=== PATIENT | female | born 1980 | race Caucasian/White ===

== ENCOUNTER → 2021-08-18 00:05 | Outpatient (CLI) | payer MEDICARE, MEDICAID, SELFPAY ==
[2021-08-18 18:04] LABS: SARS-CoV-2 RNA PCR Negative
== END ==
PROVIDERS: PCP Student in an Organized Health Care Education/Training Program; Visit Provider Student in an Organized Health Care Education/Training Program
DX: R68.89 Other general symptoms and signs (principal); Z20.822 Contact with and (suspected) exposure to COVID-19
CPT/HCPCS: C9803; U0003; U0005

== ENCOUNTER 2022-05-02 12:18 | Outpatient (CLI) | payer MEDICARE, MEDICAID, SELFPAY ==
--- NOTE | ~2022-05-02 | CT_ITS ---
EXAMINATION: CT abdomen pelvis wo con DATE: 05/02/2022 12:39 INDICATION: Right abdominal pain. TECHNIQUE: Computed tomography (CT) of the abdomen and pelvis was performed without intravenous contr ast. Automated exposure control and iterative reconstruction technique were employed. The dose-length product was 306.07 mGy-cm. COMPARISON: CT abdomen and pelvis 05/28/2012 FINDINGS: The visualized portions of the lung bases demonstrate mild atelectasis. A calcified right l ismael nodule is consistent with old granulomatous disease. No pleural effusion. The heart size is cheryl l. No pericardial effusion. The liver and spleen are normal. There are changes of cholecystectomy. Th e pancreas and adrenal glands are normal. There is a 7 mm stone in right kidney. There is a 19 mm sto ne in right renal pelvis. There is moderate bilateral hydronephrosis. There is left-sided hydroureter . There is a 4 mm stone at left ureterovesicular junction. 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 There is a left-sided end colostomy. There are no pathologically enlarged l ymph nodes. There is no free intraperitoneal fluid. There are changes of posterior fusion procedure o f thoracolumbar spine and the sacrum and iliac bones with pedicle screws and rods. Extensive metal ar tifact obscures the ureters and retroperitoneum. There is a subcutaneous pump in right abdomen with i ntrathecal catheter. IMPRESSION: 1. 4 mm stone at left ureterovesicular junction with moderate left hydronephrosis and hydroureter. Po rtions of left ureter are obscured by artifact from the spinal instrumentation. 2. Nonobstructing stones in right kidney and right renal pelvis. Moderate right hydronephrosis. The r ight ureter is obscured by artifact from the spine instrumentation. Reviewed, dictated and finalized at location A. IMPRESSION: 1. 4 mm stone at left ureterovesicular junction with moderate left hydronephros is and hydroureter. Portions of left ureter are obscured by artifact from the s vale instrumentation. 2. Nonobstructing stones in right kidney and right renal pelvis. Moderate right hydronephrosis. The right ureter is obscured by artifact from the spine instru mentation.
== END 2022-05-02 12:19 | disposition home or self-care (01) ==
PROVIDERS: PCP Student in an Organized Health Care Education/Training Program; Visit Provider Student in an Organized Health Care Education/Training Program
DX: N20.0 Calculus of kidney (principal); N13.30 Unspecified hydronephrosis; N13.4 Hydroureter; Z98.1 Arthrodesis status
CPT/HCPCS: 74176

== ENCOUNTER 2022-12-08 18:34 | Emergency (ER) | payer MEDICARE, MEDICAID, SELFPAY ==
[2022-12-08 18:44] VITALS: BP 129/76; PULSE 92; RESP 16; TEMP 36.7; O2SAT 99
--- NOTE | 2022-12-08 19:16 | ED.SKABFB ---
HPI - Skin/Abscess/Foreign Bdy General Chief complaint: Upper Respiratory Infection Stated complaint: facial swelling Time Seen by Provider: 12/08/22 18:37 Source: patient Mode of arrival: wheelchair Limitations: no limitations History of Present Illness HPI narrative: 42-year-old female presents to [facility] complaints of right facial cheek swelling and burning to her right sinuses since yesterday. Patient denies dental pain, fever, body aches, chills, nausea vomiting or diarrhea. Patient reports that she does take Zyrtec and Flonase daily. Onset (ago): day(s) (1) Associated symptoms: denies other symptoms Related Data Home Medications Medication Instructions Recorded Confirmed fluticasone propionate 50 2 spray intranasal DAILY 12/08/22 12/08/22 mcg/actuation nasal spray,suspension furosemide 20 mg tablet 20 mg PO DAILY 12/08/22 12/08/22 hydrocodone 5 mg-acetaminophen 325 1 tablet PO Q6-8H PRN Pain 12/08/22 12/08/22 mg tablet naproxen 500 mg tablet 500 mg PO DAILY 12/08/22 12/08/22 oxybutynin chloride 15 mg 15 mg PO DAILY 12/08/22 12/08/22 tablet,extended release 24 hr potassium chloride 10 mEq 10 meq PO DAILY 12/08/22 12/08/22 tablet,extended release Allergies Allergy/AdvReac Type Severity Reaction Status Date / Time adhesive Allergy Intermediate Rash Verified 12/08/22 18:57 latex Allergy Intermediate Rash Verified 12/08/22 18:57 acetaminophen AdvReac Intermediate RESTLESS Verified 12/08/22 18:57 codeine AdvReac Intermediate Other Verified 12/08/22 18:57 oxycodone AdvReac Intermediate Other Verified 12/08/22 18:57 SSRI AdvReac Intermediate Other Uncoded 12/08/22 18:57 Review of Systems Constitutional: Constitutional: Denies chills, Denies fatigue, Denies fever(s) and Denies weakness ENT: Denies vertigo and Denies dizziness Comments: right facial cheek swelling; right sinus burning Cardiovascular: Cardiovascular: Denies chest pain Respiratory: Respiratory: Denies cough, Denies dyspnea and Denies wheezing Gastrointestinal: Gastrointestinal: Denies diarrhea, Denies nausea and Denies vomiting Integumentary/Breasts: Skin/Breast: Denies rash PMFSH Social History Social History Smoking status: Former smoker Alcohol intake: never Comments At time of signature, I agree with nursing past medical, surgical, social and family history. There is no relevant family history pertinent to the presenting complaint. Exam Const: General: healthy appearing Nutritional Appearance: well nourished Orientation/consciousness: patient oriented x3 Limitations: physical limitations Other: Patient is in wheelchair for evaluation HENMT: Head: normal to inspection Ears: external ears normal and TM's normal bilaterally Face/Nose/Sinus: Normal external nose present and Normal nares present Face and sinus: normal facial exam Mouth: Yes lip normal and Yes moist mucous membranes Teeth and gingiva: dentition normal Throat: uvula midline Other: Mild swelling noted to right lower facial cheek. No obvious abscess or abnormality noted to teeth. no nasal congestion noted upon palpation. Eyes: Conjunctivae: conjunctivae normal Cardio: Rate: regular rate Rhythm: regular rhythm Heart sounds: no murmurs Skin: General skin exam: normal color Rashes: no rashes Wounds: no wounds Neuro: General: patient oriented x3 Speech: normal speech Psych: Affect: normal affect Attitude: cooperative Course Course Level of Care: Express Care Visit Vital Signs Vital signs: Vital Signs Temperature 36.7 C 12/08/22 18:44 Pulse Rate 92 12/08/22 18:44 Respiratory Rate 16 12/08/22 18:44 Blood Pressure 129/76 12/08/22 18:44 Pulse Oximetry 99 12/08/22 18:44 Oxygen Delivery Room Air 12/08/22 18:44 Temperature 36.7 C 12/08/22 18:44 Pulse Rate 92 12/08/22 18:44 Respiratory Rate 16 12/08/22 18:44 Blood Pressure 129/76 12/08
== END 2022-12-08 19:31 | disposition home or self-care (01) ==
PROVIDERS: Emergency Provider Nurse Practitioner Family
DX: R22.0 Localized swelling, mass and lump, head (principal); Z87.891 Personal history of nicotine dependence
CPT/HCPCS: 99213; G0463

== ENCOUNTER 2023-02-02 13:47 | Emergency (ER) | payer MEDICARE, MEDICAID, SELFPAY ==
--- NOTE | 2023-02-02 14:04 | ED.URI ---
HPI - URI/Sore Throat General Chief Complaint: Upper Respiratory Infection Stated Complaint: sore throat Time Seen by Provider: 02/02/23 14:05 Source: patient Mode of arrival: ambulatory Limitations: no limitations History of Present Illness HPI Narrative: Liz is a 42-year-old female patient presenting to the clinic today with complaints of a sore throat. She reports she has had sore throat for 1-2 days. Her daughter just tested positive for strep in the clinic today. She would like to be tested for strep as well. She denies any fever or chills MD elicited complaint: sore throat and nasal congestion Related Data Home Medications Medication Instructions Recorded Confirmed fluticasone propionate 50 2 spray intranasal DAILY 12/08/22 12/08/22 mcg/actuation nasal spray,suspension furosemide 20 mg tablet 20 mg PO DAILY 12/08/22 12/08/22 naproxen 500 mg tablet 500 mg PO DAILY 12/08/22 12/08/22 oxybutynin chloride 15 mg 15 mg PO DAILY 12/08/22 12/08/22 tablet,extended release 24 hr potassium chloride 10 mEq 10 meq PO DAILY 12/08/22 12/08/22 tablet,extended release nitrofurantoin 02/02/23 monohydrate/macrocrystals 100 mg capsule Allergies Allergy/AdvReac Type Severity Reaction Status Date / Time adhesive Allergy Intermediate Rash Verified 02/02/23 14:06 latex Allergy Intermediate Rash Verified 02/02/23 14:06 acetaminophen AdvReac Intermediate RESTLESS Verified 02/02/23 14:06 codeine AdvReac Intermediate Other Verified 02/02/23 14:06 oxycodone AdvReac Intermediate Other Verified 02/02/23 14:06 SSRI AdvReac Intermediate Other Uncoded 02/02/23 14:06 Review of Systems Review of Systems: Pertinent positives per HPI. Patient denies any fever, chills, rash, headache, visual changes, dizziness, cough, shortness of breath, chest pain, palpitations, nausea, vomiting, diarrhea, constipation, abdominal pain, or any urinary issues. [facility] Social History Social History Smoking status: Former smoker Alcohol intake: never Comments At the time of my signature, I reviewed and agree with the nursing past medical, surgical, social, and family history. There is no relevant family history pertinent to the patient complaint. Exam Narrative: General: Well-developed, well nourished, in no apparent distress Head: Normocephalic, atraumatic Eyes: Pupils equally round and reactive to light bilaterally, EOM intact, sclera and conjunctive clear, no discharge, lids normal Ears: TMs intact and clear, ear canals clear, no drainage, grossly hearing normal. Nose: Nares patent, clear nasal discharge, no inflammation, no sinus tenderness. Mouth: Oral pharynx without lesions or masses, good dentition, MMM. Oropharynx mildly red Neck: Supple, trachea midline, no enlargement of anterior or posterior cervical nodes, no thyroid masses or goiter palpable. Cardio: Regular rate and rhythm, s1 and s2 normal, no murmur appreciated. Resp: Clear to auscultation bilaterally, no rhonchi, rales, wheezing or rubs Course Course Emergency Course: Portions of this record may have been created with voice recognition software. Level of Care: Express Care Visit Vital Signs Vital signs: Vital signs reviewed MDM - URI/Sore Throat MDM Narrative Medical decision making narrative: At the time of visit patient is resting comfortably on the exam table. Strep screen was obtained and was positive in the clinic today. Prescription for amoxicillin was sent to pharmacy and supportive measures were discussed with the patient she voiced understanding discharge instructions and agrees to treatment plan. Differential Diagnosis Differential diagnosis: Likely upper respiratory infection, sinusitis, viral infection, influenza, pharyngitis and other (COVID) Discharge Plan Discharge Clinical Impression: Acute streptococcal pharyngitis Patient Disposition: Home, Self-Care Condition:
== END 2023-02-02 14:11 | disposition home or self-care (01) ==
PROVIDERS: Emergency Provider Nurse Practitioner Family
DX: J02.0 Streptococcal pharyngitis (principal); Z87.891 Personal history of nicotine dependence
CPT/HCPCS: 87880; 99213; G0463

== ENCOUNTER 2023-04-05 22:35 | Emergency (ER) | payer MEDICARE, MEDICAID, SELFPAY ==
[2023-04-05 22:39] VITALS: BP 147/91; PULSE 77; RESP 16; TEMP 36.4; O2SAT 99
--- NOTE | 2023-04-05 23:53 | ED.FEMALEGU ---
HPI - Female Genitourinary General Chief complaint: Urogenital-Female <Yue Bautista PA-C - Last Filed: 04/06/23 02:53> Stated complaint: catheter issues <Yue Bautista PA-C - Last Filed: 04/06/23 02:53> Time Seen by Provider: 04/05/23 23:46 <Yue Bautista PA-C - Last Filed: 04/06/23 02:53> History of Present Illness HPI Narrative: 42-year-old female with a umbilical urinary catheter reports for evaluation asking for a Tse catheter since she has been able to get her suprapubic catheter placed since yesterday. Patient reports about 1 week ago mucosa prolapsed out of her umbilical urinary catheter. She went to her PCP 2-3 days ago and was given mupirocin to apply to the site. Pt reports since yesterday, she has not been able to place her suprapubic catheter but she has been leaking urine out of her urethra. Pt reports this has happened in the past and resolved with topical mupirocin. Her urology office is closed until 04/08, but she plans to call then to make an appt for follow up. She denies abdominal pain or suprapubic tenderness, fevers, body aches or chills, rash around her umbilical catheter site. <Yue Bautista PA-C - Last Filed: 04/06/23 02:53> Related Data Home medications: Home Medications Medication Instructions Recorded Confirmed fluticasone propionate 50 2 spray intranasal DAILY 12/08/22 12/08/22 mcg/actuation nasal spray,suspension naproxen 500 mg tablet 500 mg PO DAILY 12/08/22 12/08/22 oxybutynin chloride 15 mg 15 mg PO DAILY 12/08/22 12/08/22 tablet,extended release 24 hr potassium chloride 10 mEq 10 meq PO DAILY 12/08/22 12/08/22 tablet,extended release <Yue Bautista PA-C - Last Filed: 04/06/23 02:53> Allergies/Adverse reactions: Allergies Allergy/AdvReac Type Severity Reaction Status Date / Time adhesive Allergy Intermediate Rash Verified 04/06/23 18:15 latex Allergy Intermediate Rash Verified 04/06/23 18:15 acetaminophen AdvReac Intermediate RESTLESS Verified 04/06/23 18:15 codeine AdvReac Intermediate Other Verified 04/06/23 18:15 oxycodone AdvReac Intermediate Other Verified 04/06/23 18:15 SSRI AdvReac Intermediate Other Uncoded 04/06/23 18:15 <Yue Bautista PA-C - Last Filed: 04/06/23 02:53> Review of Systems Review of Systems: CONSTITUTIONAL: Denies fever, chills EYES: Denies visual changes, redness, or discharge. ENT: Denies rhinorrhea, congestion, sore throat, or otalgia. CARDIOVASCULAR: Denies chest pain, palpitations, or edema. RESPIRATORY: Denies cough or dyspnea. GASTROINTESTINAL: Denies abdominal pain, nausea, vomiting, or diarrhea. GENITOURINARY: Denies dysuria or hematuria. SKIN: Denies rash or itching. MUSCULOSKELETAL: Denies back pain, joint pain, or myalgia. NEUROLOGIC: Denies headache, numbness, dizziness, or weakness. PSYCHIATRIC: Denies anxiety or depression. <Yue Bautista PA-C - Last Filed: 04/06/23 02:53> [facility] Past Medical History Medical History: Medical History (Updated 04/07/23 @ 00:01 by Isidro Villalobos) Colostomy in place Kidney stone Paraplegia Suprapubic catheter <Yue Bautista PA-C - Last Filed: 04/06/23 02:53> Surgical History Surgical History: Surgical History (Updated 04/06/23 @ 19:41 by Mimi Gonzalez APRN) H/O sinus surgery History of cholecystectomy History of hip surgery <Yue Bautista PA-C - Last Filed: 04/06/23 02:53> Social History Social History: Social History Smoking status: Former smoker Alcohol intake: never <Yue Bautista PA-C - Last Filed: 04/06/23 02:53> Exam Narrative: GENERAL: Well-appearing, in no acute distress. HEAD: Normocephalic NECK: Supple. CHEST: No respiratory distress. Clear to auscultation, no adventitious breath sounds. HEART: Regular rate and rhythm. No murmur heard. Normal peripheral pulses. ABDOMEN: Soft, nontender, normal
[2023-04-06 00:02] VITALS: BP 139/69; PULSE 85; RESP 19; O2SAT 100
[2023-04-06 00:35] VITALS: BP 139/69; PULSE 79; RESP 18; O2SAT 100
== END 2023-04-06 00:45 | disposition home or self-care (01) ==
PROVIDERS: Emergency Provider Physician Assistant
DX: Z46.6 Encounter for fitting and adjustment of urinary device (principal); Z87.891 Personal history of nicotine dependence
CPT/HCPCS: 51702; 99283

== ENCOUNTER 2023-04-06 17:49 | Emergency (ER) | payer MEDICARE, MEDICAID, SELFPAY ==
[2023-04-06 18:05] VITALS: BP 117/82; PULSE 99; RESP 16; TEMP 36.6; O2SAT 100
--- NOTE | 2023-04-06 18:28 | ED.FEMALEGU ---
HPI - Female Genitourinary General Chief complaint: Urogenital-Female Stated complaint: Wound Check Time Seen by Provider: 04/06/23 18:14 Source: patient and RN notes reviewed Mode of arrival: wheelchair Limitations: no limitations History of Present Illness HPI Narrative: 42-year-old female with a history of paraplegia and umbilical urinary catheter presented for evaluation to check the Tse catheter placement. States it was inserted in the ER yesterday but has been leaking urine and not filling up the leg bag. Concerned she may have tugged on it while in the shower. Patient reports about 1 week ago mucosa prolapsed out of her umbilical urinary catheter and has been unable to reinsert the catheter. She went to her PCP last week and was given mupirocin to apply to the prolapsed site, and had Tse placed. Her urology office is closed until 04/08, but she plans to call for follow up.? She endorses she has some sensation to luis area; denies abdominal pain or suprapubic tenderness, fevers, body aches or chills, or rash around her umbilical catheter site. Related Data Home Medications Medication Instructions Recorded Confirmed fluticasone propionate 50 2 spray intranasal DAILY 12/08/22 12/08/22 mcg/actuation nasal spray,suspension naproxen 500 mg tablet 500 mg PO DAILY 12/08/22 12/08/22 oxybutynin chloride 15 mg 15 mg PO DAILY 12/08/22 12/08/22 tablet,extended release 24 hr potassium chloride 10 mEq 10 meq PO DAILY 12/08/22 12/08/22 tablet,extended release Allergies Allergy/AdvReac Type Severity Reaction Status Date / Time adhesive Allergy Intermediate Rash Verified 04/06/23 18:15 latex Allergy Intermediate Rash Verified 04/06/23 18:15 acetaminophen AdvReac Intermediate RESTLESS Verified 04/06/23 18:15 codeine AdvReac Intermediate Other Verified 04/06/23 18:15 oxycodone AdvReac Intermediate Other Verified 04/06/23 18:15 SSRI AdvReac Intermediate Other Uncoded 04/06/23 18:15 Review of Systems Review of Systems: CONSTITUTIONAL: Denies body aches, fever, chills, or sweats. CARDIOVASCULAR: Denies chest pain, palpitations, or edema. RESPIRATORY: Denies cough or dyspnea. GASTROINTESTINAL: Denies abdominal pain, nausea, vomiting, or diarrhea. GENITOURINARY: per HPI SKIN: Denies rash, itching, or wounds. MUSCULOSKELETAL: Denies back pain or myalgia. [facility] Past Medical History Medical History (Updated 04/06/23 @ 19:42 by Mimi Gonzalez APRN) Colostomy in place Kidney stone Paraplegia Suprapubic catheter Surgical History Surgical History (Updated 04/06/23 @ 19:41 by Mimi Gonzalez APRN) H/O sinus surgery History of cholecystectomy History of hip surgery Social History Social History Smoking status: Former smoker Alcohol intake: never Comments At time of signature, I have reviewed and agree with nursing past medical, surgical, social and family history unless otherwise noted. Please see nursing chart for further information. There is no relevant family history pertinent to the presenting complaint Exam Narrative: GENERAL: Well-appearing and in no acute distress. HEAD: Normocephalic EYES: EOMI. . ENT: Mucous membranes pink and moist. CHEST: No respiratory distress. ABDOMEN: Soft, colostomy bag in place, umbilical mucosa prolapse; multiple abdominal scars MUSCULOSKELETAL: paraplegia, bilateral hip scars SKIN: Warm, dry, no rash. NEURO: No focal deficits. Alert and oriented x3. PSYCH: Normal affect. Course Course Emergency Course: Patient is aware of diagnosis, understands and agrees to treatment plan. Anticipatory guidance given. Patient agrees to follow-up as directed and is aware of reasons to seek care at the emergency department. Portions of this record may have been created with voice recognition software Level of Care: Express Care Visit Vital Signs Vital signs: Vital Signs Temperature 97.8
--- NOTE | 2023-04-06 18:31 | PC.NURSE ---
1813- Chaperoned BUSINESS INTEGRATION ANALYST, doing checked chan cath. See BUSINESS INTEGRATION ANALYST notes.
== END 2023-04-06 19:10 | disposition home or self-care (01) ==
PROVIDERS: Emergency Provider Nurse Practitioner Family; PCP Student in an Organized Health Care Education/Training Program
DX: Z43.6 Encounter for attention to other artificial openings of urinary tract (principal); Z93.3 Colostomy status; G82.20 Paraplegia, unspecified; Z87.891 Personal history of nicotine dependence
CPT/HCPCS: 99212; G0463

== ENCOUNTER 2023-04-20 01:18 | Emergency (ER) | payer MEDICARE, MEDICAID, SELFPAY ==
[2023-04-20 01:22] VITALS: BP 119/65; PULSE 87; RESP 17; O2SAT 98
--- NOTE | 2023-04-20 01:32 | ED.FEMALEGU ---
HPI - Female Genitourinary General Chief complaint: Urogenital-Female Stated complaint: Tse fell out Time Seen by Provider: 04/20/23 01:20 History of Present Illness HPI Narrative: 42-year-old female with history of paraplegia and suprapubic Tse catheter presented to the ED for evaluation of a Tse catheter issue. Patient was recently admitted at [facility] and had an infection of her suprapubic Tse site. They attempted to redo the suprapubic Tse but they were unable to. Patient was discharged with a Tse catheter through her urethra. Patient reports tonight that while she was transferring she dislodged her urethral Tse catheter. Patient is still on ciprofloxacin since being discharged. Related Data Home Medications Medication Instructions Recorded Confirmed fluticasone propionate 50 2 spray intranasal DAILY 12/08/22 12/08/22 mcg/actuation nasal spray,suspension naproxen 500 mg tablet 500 mg PO DAILY 12/08/22 12/08/22 oxybutynin chloride 15 mg 15 mg PO DAILY 12/08/22 12/08/22 tablet,extended release 24 hr potassium chloride 10 mEq 10 meq PO DAILY 12/08/22 12/08/22 tablet,extended release Allergies Allergy/AdvReac Type Severity Reaction Status Date / Time adhesive Allergy Intermediate Rash Verified 04/20/23 01:25 latex Allergy Intermediate Rash Verified 04/20/23 01:25 acetaminophen AdvReac Intermediate RESTLESS Verified 04/20/23 01:25 codeine AdvReac Intermediate Other Verified 04/20/23 01:25 oxycodone AdvReac Intermediate Other Verified 04/20/23 01:25 SSRI AdvReac Intermediate Other Uncoded 04/20/23 01:25 Review of Systems Review of Systems: All systems reviewed & are unremarkable except as noted in HPI and below PMFSH Past Medical History Medical History (Updated 04/20/23 @ 02:55 by Fidel Freedman MD) Colostomy in place Kidney stone Paraplegia Suprapubic catheter Surgical History Surgical History (Updated 04/06/23 @ 19:41 by Mimi Gonzalez APRN) H/O sinus surgery History of cholecystectomy History of hip surgery Social History Social History Smoking status: Former smoker Alcohol intake: never Exam Narrative: APPEARANCE: Well appearing, no pain, no distress, well-nourished. HEAD: normocephalic, atraumatic. EYES: PERRLA/EOMI, conjunctivae clear. NOSE: Normal no drainage NECK: Supple. No adenopathy, no masses. RESPIRATORY: Airway patent, respirations nonlabored. Clear to auscultation bilaterally, no rales, rhonchi, wheezing. CARDIOVASCULAR: Regular rate and rhythm without murmurs rubs or gallops. ABDOMINAL: Soft, nontender, nondistended, normal bowel sounds MUSCULOSKELETAL: Moves all extremities. Strength/ROM intact, No edema, No calf tenderness. NEURO: Alert. Grossly intact Course Course Emergency Course: 42-year-old female with a dislodged urethral Tse catheter. Unable to track down a 20-Iranian nonlatex. The largest nonlatex Tse catheter we could obtain was an 18 Iranian. This was placed and patient tolerated procedure well and patient and is draining. Patient will have close follow-up with her urologist and primary care physician. Vital Signs Vital signs: Vital Signs Pulse Rate 87 04/20/23 01:22 Respiratory Rate 17 04/20/23 01:22 Blood Pressure 119/65 04/20/23 01:22 Pulse Oximetry 98 04/20/23 01:22 Oxygen Delivery Room Air 04/20/23 01:22 Pulse Rate 87 04/20/23 01:22 Respiratory Rate 17 04/20/23 01:22 Blood Pressure 119/65 04/20/23 01:22 Pulse Oximetry 98 04/20/23 01:22 Oxygen Delivery Room Air 04/20/23 01:22 MDM - Female Genitourinary Lab Data Labs: Urine Characteristics Cloudy Discharge Plan Discharge Clinical Impression: Displacement of Tse catheter Patient Disposition: Home, Self-Care Condition: Stable Instructions: Antibiotic Form, Tse Catheter Placem
== END 2023-04-20 03:10 | disposition home or self-care (01) ==
PROVIDERS: Emergency Provider Emergency Medicine; PCP Student in an Organized Health Care Education/Training Program
DX: Z46.6 Encounter for fitting and adjustment of urinary device (principal); G82.20 Paraplegia, unspecified; Z93.3 Colostomy status; Z87.891 Personal history of nicotine dependence
CPT/HCPCS: 51702; 99283

== ENCOUNTER 2023-06-07 19:03 | Emergency (ER) | payer MEDICARE, MEDICAID, SELFPAY ==
[2023-06-07 19:10] VITALS: BP 153/83; PULSE 93; RESP 16; TEMP 36.7; O2SAT 99
--- NOTE | 2023-06-07 21:32 | ED.FEMALEGU ---
HPI - Female Genitourinary General Chief complaint: Urogenital-Female Stated complaint: chan cath fell out-needs replaced. Time Seen by Provider: 06/07/23 21:26 Source: patient Mode of arrival: ambulatory Limitations: no limitations History of Present Illness HPI Narrative: This is a 42-year-old female that presents to the emergency department for dislodgment of Chan catheter. Reports she accidentally pulled it out today. Is here to have it replaced. Denies fevers or vomiting. Related Data Home Medications Medication Instructions Recorded Confirmed fluticasone propionate 50 2 spray intranasal DAILY 12/08/22 12/08/22 mcg/actuation nasal spray,suspension naproxen 500 mg tablet 500 mg PO DAILY 12/08/22 12/08/22 oxybutynin chloride 15 mg 15 mg PO DAILY 12/08/22 12/08/22 tablet,extended release 24 hr potassium chloride 10 mEq 10 meq PO DAILY 12/08/22 12/08/22 tablet,extended release Allergies Allergy/AdvReac Type Severity Reaction Status Date / Time adhesive Allergy Intermediate Rash Verified 06/07/23 21:37 latex Allergy Intermediate Rash Verified 06/07/23 21:37 acetaminophen AdvReac Intermediate RESTLESS Verified 06/07/23 21:37 codeine AdvReac Intermediate Other Verified 06/07/23 21:37 oxycodone AdvReac Intermediate Other Verified 06/07/23 21:37 SSRI AdvReac Intermediate Other Uncoded 06/07/23 21:37 Review of Systems Review of Systems: CONSTITUTIONAL: Denies fever GASTROINTESTINAL: Denies abdominal pain, vomiting All systems reviewed & are unremarkable except as noted in HPI and below PMFSH Past Medical History Medical History (Updated 06/07/23 @ 21:39 by Felicita Stevens PA-C) Colostomy in place Kidney stone Paraplegia Suprapubic catheter Surgical History Surgical History (Updated 04/06/23 @ 19:41 by Mimi Gonzalez APRN) H/O sinus surgery History of cholecystectomy History of hip surgery Social History Social History Smoking status: Former smoker Alcohol intake: never Exam Narrative: GENERAL: Well-appearing, well-nourished, and in no acute distress. HEAD: Normocephalic, atraumatic. EYES: EOMI. CHEST: Clear to auscultation. No respiratory distress. No wheezes rales or rhonchi HEART: Regular rate and rhythm. No murmur heard. Normal peripheral pulses. ABDOMEN: Soft, nontender, nondistended, normal active bowel sounds. EXTREMITIES: Normal range of motion. No edema. SKIN: Warm, dry, no rash. NEURO: No focal deficits. Alert and oriented x3. PSYCH: Normal mood and affect Course Course Emergency Course: Patient instructed to follow-up with her urologist as planned Vital Signs Vital signs: Vital Signs Temperature 98.0 F 06/07/23 19:10 Pulse Rate 93 06/07/23 19:10 Respiratory Rate 16 06/07/23 19:10 Blood Pressure 153/83 H 06/07/23 19:10 Pulse Oximetry 99 06/07/23 19:10 Oxygen Delivery Room Air 06/07/23 19:10 Temperature 98.0 F 06/07/23 19:10 Pulse Rate 93 06/07/23 19:10 Respiratory Rate 16 06/07/23 19:10 Blood Pressure 153/83 H 06/07/23 19:10 Pulse Oximetry 99 06/07/23 19:10 Oxygen Delivery Room Air 06/07/23 19:10 MDM - Female Genitourinary MDM Narrative Medical decision making narrative: Patient presents to the emergency department to have her Chan catheter replaced. She is not having any symptoms. She is afebrile and nontoxic-appearing. This was successfully replaced. Instructed to follow-up with her urologist as planned. She was given warnings to return to the ER Critical Care Time Critical Care Time Critical Care Time: No Discharge Plan Discharge Clinical Impression: Dislodged Chan catheter Qualifiers: Encounter type: initial encounter Qualified Code(s): T83.021A - Displacement of indwelling urethral catheter, initial encounter Patient Disposition: Home, Self-Care Condition: Stable Instructions: Chan Catheter Placement and Care (ED)
== END 2023-06-07 22:26 | disposition home or self-care (01) ==
LOC: ANHED 22:22
PROVIDERS: Emergency Provider Physician Assistant; PCP Student in an Organized Health Care Education/Training Program
DX: T83.021A Displacement of indwelling urethral catheter, initial encounter (principal); Z87.891 Personal history of nicotine dependence
CPT/HCPCS: 99283

== ENCOUNTER 2023-06-29 09:50 | Emergency (ER) | payer MEDICARE, MEDICAID, SELFPAY ==
[2023-06-29 09:53] VITALS: BP 127/86; PULSE 93; RESP 18; TEMP 36.4; O2SAT 100
--- NOTE | 2023-06-29 10:17 | ED.FEMALEGU ---
HPI - Female Genitourinary General Chief complaint: Urogenital-Female Stated complaint: catheter issue Time Seen by Provider: 06/29/23 09:57 History of Present Illness HPI Narrative: 43-year-old female presented the ED for evaluation of a dislodged urethral Tse catheter. Patient previously had a suprapubic Tse cath but had issues and the fistula was allowed to closed. Patient is scheduled to have a second suprapubic Tse catheter placed. Patient has been having an indwelling urethral Tse catheter. Patient has had follow-up with a urology at [place] and is pending scheduling for surgery. Related Data Home Medications Medication Instructions Recorded Confirmed fluticasone propionate 50 2 spray intranasal DAILY 12/08/22 12/08/22 mcg/actuation nasal spray,suspension naproxen 500 mg tablet 500 mg PO DAILY 12/08/22 12/08/22 oxybutynin chloride 15 mg 15 mg PO DAILY 12/08/22 12/08/22 tablet,extended release 24 hr potassium chloride 10 mEq 10 meq PO DAILY 12/08/22 12/08/22 tablet,extended release Allergies Allergy/AdvReac Type Severity Reaction Status Date / Time adhesive Allergy Intermediate Rash Verified 06/07/23 21:37 latex Allergy Intermediate Rash Verified 06/07/23 21:37 acetaminophen AdvReac Intermediate RESTLESS Verified 06/07/23 21:37 codeine AdvReac Intermediate Other Verified 06/07/23 21:37 oxycodone AdvReac Intermediate Other Verified 06/07/23 21:37 SSRI AdvReac Intermediate Other Uncoded 06/07/23 21:37 Review of Systems Review of Systems: All systems reviewed & are unremarkable except as noted in HPI and below PMFSH Past Medical History Medical History (Updated 06/29/23 @ 10:48 by Fidel Freedman MD) Colostomy in place Kidney stone Paraplegia Suprapubic catheter Surgical History Surgical History (Updated 04/06/23 @ 19:41 by Mimi Gonzalez APRN) H/O sinus surgery History of cholecystectomy History of hip surgery Social History Social History Smoking status: Former smoker Alcohol intake: never Exam Narrative: APPEARANCE: Well appearing, no pain, no distress, well-nourished. HEAD: normocephalic, atraumatic. EYES: PERRLA/EOMI, conjunctivae clear. NOSE: Normal no drainage NECK: Supple. No adenopathy, no masses. RESPIRATORY: Airway patent, respirations nonlabored. Clear to auscultation bilaterally, no rales, rhonchi, wheezing. CARDIOVASCULAR: Regular rate and rhythm without murmurs rubs or gallops. ABDOMINAL: Soft, nontender, nondistended, normal bowel sounds MUSCULOSKELETAL: Moves all extremities. Strength/ROM intact, No edema, No calf tenderness. NEURO: Alert. Cranial nerves II through XII intact. Grossly intact SKIN: Warm, dry. Normal Color Course Course Emergency Course: 43-year-old female presented the ED for evaluation of a dislodged Tse catheter. Patient's Tse catheter was reinserted and patient is draining and feels improved. Patient will have close follow-up with [facility]. All question concerns were addressed. Vital Signs Vital signs: Vital Signs Temperature 97.6 F 06/29/23 09:53 Pulse Rate 93 06/29/23 09:53 Respiratory Rate 18 06/29/23 09:53 Blood Pressure 127/86 06/29/23 09:53 Pulse Oximetry 100 06/29/23 09:53 Oxygen Delivery Room Air 06/29/23 09:53 Temperature 97.6 F 06/29/23 09:53 Pulse Rate 93 06/29/23 09:53 Respiratory Rate 18 06/29/23 09:53 Blood Pressure 127/86 06/29/23 09:53 Pulse Oximetry 100 06/29/23 09:53 Oxygen Delivery Room Air 06/29/23 09:53 Discharge Plan Discharge Clinical Impression: Displacement of Tse catheter Patient Disposition: Home, Self-Care Condition: Stable Instructions: Antibiotic Form, Tse Catheter Placement and Care (ED) Additional Instructions: Have close follow-up with urology. Tse catheter care as directed. If you have any worsening symptoms please call or return to the emergency dep
== END 2023-06-29 11:04 | disposition home or self-care (01) ==
PROVIDERS: Emergency Provider Emergency Medicine; PCP Student in an Organized Health Care Education/Training Program
DX: T83.098A Other mechanical complication of other urinary catheter, initial encounter (principal); G82.20 Paraplegia, unspecified; Z93.3 Colostomy status; Z87.442 Personal history of urinary calculi; Z87.891 Personal history of nicotine dependence; Y84.6 Urinary catheterization as the cause of abnormal reaction of the patient, or of later complication, without mention of misadventure at the time of the procedure
CPT/HCPCS: 51702; 99283

== ENCOUNTER 2023-08-30 10:22 | Emergency (ER) | payer MEDICARE, MEDICAID, SELFPAY ==
[2023-08-30 10:29] VITALS: BP 121/67; PULSE 80; RESP 16; TEMP 36.8; O2SAT 99
--- NOTE | 2023-08-30 11:34 | ED.GENADULT ---
HPI - General Adult General Chief complaint: Unspecified Stated complaint: WANTS CATHETER REPLACED Time Seen by Provider: 08/30/23 10:34 History of Present Illness HPI narrative: 43-year-old female with a history of spinal injury at who was paralyzed from the waist down reports for evaluation for a dislodged urethral Tse catheter. Patient states she used to have a umbilical catheter, however the fistula closed earlier in the year and since then she has been catheterizing through her urethra. She is scheduled for surgery on October 22 for an umbilical catheter placement. States last night the Tse fell out in the middle the night due to her muscle spasms. She also reports she is currently being treated by her PCP for UTI and is on day 4 of her Bactrim, she has not missed any doses. She denies abdominal pain, hematuria or dysuria, nausea or vomiting, fever. She has no other complaints. Related Data Home Medications Medication Instructions Recorded Confirmed fluticasone propionate 50 2 spray intranasal DAILY 12/08/22 12/08/22 mcg/actuation nasal spray,suspension naproxen 500 mg tablet 500 mg PO DAILY 12/08/22 12/08/22 oxybutynin chloride 15 mg 15 mg PO DAILY 12/08/22 12/08/22 tablet,extended release 24 hr potassium chloride 10 mEq 10 meq PO DAILY 12/08/22 12/08/22 tablet,extended release Allergies Allergy/AdvReac Type Severity Reaction Status Date / Time adhesive Allergy Intermediate Rash Verified 06/07/23 21:37 latex Allergy Intermediate Rash Verified 06/07/23 21:37 acetaminophen AdvReac Intermediate RESTLESS Verified 06/07/23 21:37 codeine AdvReac Intermediate Other Verified 06/07/23 21:37 oxycodone AdvReac Intermediate Other Verified 06/07/23 21:37 SSRI AdvReac Intermediate Other Uncoded 06/07/23 21:37 Review of Systems Review of Systems: CONSTITUTIONAL: Denies fever, chills EYES: Denies visual changes, redness, or discharge. ENT: Denies rhinorrhea, congestion, sore throat, or otalgia. CARDIOVASCULAR: Denies chest pain, palpitations, or edema. RESPIRATORY: Denies cough or dyspnea. GASTROINTESTINAL: Denies abdominal pain, nausea, vomiting, or diarrhea. GENITOURINARY: See HPI SKIN: Denies rash or itching. MUSCULOSKELETAL: Denies back pain, joint pain, or myalgia. NEUROLOGIC: Denies headache, numbness, dizziness, or weakness. PSYCHIATRIC: Denies anxiety or depression. [facility] Past Medical History Medical History Colostomy in place Kidney stone Paraplegia Suprapubic catheter Surgical History Surgical History H/O sinus surgery History of cholecystectomy History of hip surgery Social History Social History Smoking status: Former smoker Alcohol intake: never Exam Narrative: GENERAL: Well-appearing, in no acute distress. HEAD: Normocephalic NECK: Supple. CHEST: No respiratory distress. Clear to auscultation, no adventitious breath sounds. HEART: Regular rate and rhythm. No murmur heard. Normal peripheral pulses. ABDOMEN: Soft, nontender, normal active bowel sounds. Colostomy in place without surrounding erythema or drainage. Baclofen pump palpated in the right lower quadrant. No CVA tenderness, guarding, rebound or rigidity. EXTREMITIES: Normal range of motion. No edema. SKIN: Warm, dry, no rash. NEURO: No focal deficits. Alert and oriented x3. PSYCH: Normal mood and affect. Course Vital Signs Vital signs: Vital Signs Temperature 98.3 F 08/30/23 10:29 Pulse Rate 80 08/30/23 10:29 Respiratory Rate 16 08/30/23 10:29 Blood Pressure 121/67 08/30/23 10:29 Pulse Oximetry 99 08/30/23 10:29 Oxygen Delivery Room Air 08/30/23 10:29 Temperature 98.3 F 08/30/23 10:29 Pulse Rate 80 08/30/23 10:29 Respiratory Rate 16 08/30/23 10:29 Blood Pressure 121/67 08/30/23 10:29 P
[2023-08-30 12:11] LABS: Amorphous Sediment Urine Present; Appearance Urine Turbid (Clear); Bacteria Urine 4+ /hpf; Bilirubin Urine Negative (Negative); Blood Urine 2+ (Negative); Color Urine Yellow (Yellow); Glucose Urine UA Negative (Negative); Ketones Urine Negative (Negative); Leukocyte Esterase Ur 3+ LEU/UL (Negative); Need Manual Microscopic Reviewed; Nitrate Urine Negative (Negative); Non Pathogenic Casts >20; Protein Urine 1+ mg/dL (Negative); Specific Grav Ur 1.014 (1.001-1.035); Squamous Epithelial Cell Urine Few /hpf (Few); Urobilinogen Urine 0.2 mg/dL (<2.0); WBC Urine >100 /hpf; pH Urine 7.5 (5.0-9.0)
[2023-08-30 12:12] LABS: Add Urine Microscopic? YES
--- NOTE | 2023-09-30 10:18 | PC.NURSE ---
LATE ENTRY This note is being entered to document information to the patient's record. The following information was omitted on [08/30/23], by [Norah Bautista ]. LANNY for Chan catheter insertion. Information omitted on 08/30/23 by Ilana Tristan of chan insertion, without complication. UA collected
== END 2023-08-30 11:50 | disposition home or self-care (01) ==
PROVIDERS: Emergency Provider Physician Assistant; PCP Student in an Organized Health Care Education/Training Program
DX: Z46.6 Encounter for fitting and adjustment of urinary device (principal); N39.0 Urinary tract infection, site not specified; G82.20 Paraplegia, unspecified; Z93.3 Colostomy status; Z97.8 Presence of other specified devices; Z87.442 Personal history of urinary calculi; Z87.891 Personal history of nicotine dependence; Z90.49 Acquired absence of other specified parts of digestive tract; Y84.6 Urinary catheterization as the cause of abnormal reaction of the patient, or of later complication, without mention of misadventure at the time of the procedure
CPT/HCPCS: 51702; 81001; 87086; 87088; 99283

== ENCOUNTER 2023-11-29 22:14 | Emergency (ER) | payer MEDICARE, MEDICAID, SELFPAY ==
[2023-11-29 22:17] VITALS: BP 104/56; PULSE 115; RESP 20; TEMP 36.3; O2SAT 100
--- NOTE | 2023-11-29 23:46 | ED.FEMALEGU ---
HPI - Female Genitourinary General Chief complaint: Urogenital-Female Stated complaint: catheter issues Time Seen by Provider: 11/29/23 23:26 Source: patient Mode of arrival: wheelchair Limitations: no limitations History of Present Illness HPI Narrative: Patient is a 43 y/o female, with pmh of congenital spinal injury w/ paraplegia, suprapubic catheter, colostomy, who presents to the ED with report of dislodged Tse catheter. Patient reports she currently follows with a urologist at [facility]. She recently had surgery for a suprapubic catheter replacement d/t scar tissue/stoma closing. She has had issues recently with her suprapubic catheter draining around the catheter site. She has subsequently required a Tse catheter to be placed until her new stoma site fully heals. Patient reports she has recurrent muscle spasms and her catheter has fallen out in the past. She reports her Tse catheter dislodged tonight. She would like a replacement. Patient does have appointment with her urologist within the next week and a half. She is currently on Keflex for infection prevention. She denies significant abdominal pain, nausea, vomiting, fevers, hematuria. Suprapubic catheter is still draining appropriately. Related Data Home Medications Medication Instructions Recorded Confirmed fluticasone propionate 50 2 spray intranasal DAILY 12/08/22 12/08/22 mcg/actuation nasal spray,suspension naproxen 500 mg tablet 500 mg PO DAILY 12/08/22 12/08/22 oxybutynin chloride 15 mg 15 mg PO DAILY 12/08/22 12/08/22 tablet,extended release 24 hr potassium chloride 10 mEq 10 meq PO DAILY 12/08/22 12/08/22 tablet,extended release Allergies Allergy/AdvReac Type Severity Reaction Status Date / Time adhesive Allergy Intermediate Rash Verified 11/29/23 22:20 latex Allergy Intermediate Rash Verified 11/29/23 22:20 acetaminophen AdvReac Intermediate RESTLESS Verified 11/29/23 22:20 codeine AdvReac Intermediate Other Verified 11/29/23 22:20 oxycodone AdvReac Intermediate Other Verified 11/29/23 22:20 SSRI AdvReac Intermediate Other Uncoded 06/07/23 21:37 Review of Systems Review of Systems: CONSTITUTIONAL: Denies fever, chills, or sweats. GASTROINTESTINAL: Denies abdominal pain, nausea, vomiting, or diarrhea. GENITOURINARY: See HPI. All systems reviewed & are unremarkable except as noted in HPI and below PMFSH Past Medical History Medical History Colostomy in place Kidney stone Paraplegia Suprapubic catheter Surgical History Surgical History H/O sinus surgery History of cholecystectomy History of hip surgery Social History Social History Smoking status: Former smoker Alcohol intake: never Exam Narrative: GENERAL: Well appearing, well-nourished, non-toxic, in no acute distress. HEAD: Normocephalic, atraumatic. RESPIRATORY: Airway patent, respirations nonlabored. CARDIOVASCULAR: Regular rate and rhythm. ABDOMINAL: Soft, nontender, suprapubic catheter in place. No significant drainage around stoma site. Colostomy in left-sided abdomen. MUSCULOSKELETAL: Paraplegia. SKIN: Warm, dry, normal color. NEURO: A&O X3. Speech clear. PSYCHIATRIC: Appropriate mood and affect. Normal interaction. Course Vital Signs Vital signs: Vital Signs Temperature 97.3 F L 11/29/23 22:17 Pulse Rate 115 H 11/29/23 22:17 Respiratory Rate 20 11/29/23 22:17 Blood Pressure 104/56 L 11/29/23 22:17 Pulse Oximetry 100 11/29/23 22:17 Oxygen Delivery Room Air 11/29/23 22:17 Temperature 97.3 F L 11/29/23 22:17 Pulse Rate 101 H 11/30/23 00:40 Respiratory Rate 19 11/30/23 00:40 Blood Pressure 102/60 11/30/23 00:40 Pulse Oximetry 100 11/30/23 00:40 Oxygen Delivery Room Air 11/29/23 22:17 MDM - Female Genitourinary MDM
[2023-11-30 00:40] VITALS: BP 102/60; PULSE 101; RESP 19; O2SAT 100
[2023-11-30 00:42] LABS: Bilirubin Urine Negative (Negative); Blood Urine 2+ (Negative); Color Urine Yellow (Yellow); Glucose Urine UA Negative (Negative); Ketones Urine Trace mg/dL (Negative); Nitrate Urine Positive (Negative); pH Urine 6.5 (5.0-9.0)
[2023-11-30 01:05] LABS: Appearance Urine Clear (Clear); Leukocyte Esterase Ur 3+ LEU/UL (Negative); Protein Urine 1+ mg/dL (Negative); Specific Grav Ur 1.017 (1.001-1.035)
[2023-11-30 01:07] LABS: Squamous Epithelial Cell Urine Few /hpf (Few); WBC Urine >100 /hpf
[2023-11-30 01:08] LABS: Bacteria Urine 1+ /hpf
[2023-11-30 01:09] LABS: Add Urine Microscopic? YES
== END 2023-11-30 00:41 | disposition home or self-care (01) ==
LOC: ANHED 11-30 00:27
PROVIDERS: Emergency Provider Physician Assistant; PCP Student in an Organized Health Care Education/Training Program
DX: T83.021A Displacement of indwelling urethral catheter, initial encounter (principal); G82.20 Paraplegia, unspecified; Z93.3 Colostomy status; Z87.442 Personal history of urinary calculi; Z87.891 Personal history of nicotine dependence; Z90.49 Acquired absence of other specified parts of digestive tract; Y84.6 Urinary catheterization as the cause of abnormal reaction of the patient, or of later complication, without mention of misadventure at the time of the procedure
CPT/HCPCS: 51702; 81001; 87077; 87086; 87186; 99283